=== PATIENT | female | born 1995 | race Caucasian/White ===

== ENCOUNTER 2018-08-15 22:37 | Emergency (ER) | payer MEDICAID ==
[~2018-08-15] VITALS: Ht 167.6 cm; Wt 117.5 kg
[2018-08-15 22:46] VITALS: BP 129/75
== END 2018-08-15 23:40 | disposition home or self-care (01) ==
LOC: ED 22:37
DX: O20.0 Threatened abortion (principal); O23.41 Unspecified infection of urinary tract in pregnancy, first trimester; R56.9 Unspecified convulsions; Z3A.12 12 weeks gestation of pregnancy